=== PATIENT | female | born 1960 | race Caucasian/White ===

== ENCOUNTER 2021-08-24 19:25 | Emergency (ER) | payer MEDICAID ==
[~2021-08-24] VITALS: Ht 152.4 cm; Wt 61.7 kg
[2021-08-24 21:41] VITALS: BP 107/59
[2021-08-24] MEDS ORDERED: NACL 0.9% 1,000 ML IV ONE (23:10)
[2021-08-24 23:28] LABS: BASOPHILS % (AUTO) 0.4 % (0.0-2.0); HEMATOCRIT 32.7 % (36-48); HEMOGLOBIN 11.1 g/dL (12.0-16.0); LYMPHOCYTES % (AUTO) 24.3 % (20.5-51.1); MEAN CORPUSCULAR HEMOGLOBIN 28 pg (27-31); MEAN CORPUSCULAR HGB CONC 34 g/dL (33-37); MEAN CORPUSCULAR VOLUME 82.8 fL (80-94); MONOCYTES # (AUTO) 0.4 K/uL (0.8-1.0); MONOCYTES % (AUTO) 9.5 % (1.7-9.3); NEUTROPHILS # (AUTO) 2.8 K/uL (1.8-7.7); NEUTROPHILS % (AUTO) 65.8 % (42.2-75.2); PLATELET COUNT (AUTO) 219 K/uL (140-450); RED BLOOD CELL COUNT(AUTO) 3.94 MIL/uL (4.20-5.40); RED CELL DISTRIBUTION WIDTH 15.1 % (11.6-13.7); WHITE BLOOD COUNT (AUTO) 4.3 K/uL (4.8-10.8)
[2021-08-24 23:45] LABS: ALBUMIN 3.3 g/dL (3.4-5.0); CARBON DIOXIDE 22.7 mmol/L (21-32); CREATININE 1.2 mg/dL (0.6-1.3); POTASSIUM 3.7 mmol/L (3.5-5.1); TOTAL BILIRUBIN 0.3 mg/dL (0.0-1.0)
--- NOTE | 2021-08-25 01:10 | NUR ---
PT W/C ASSISTED TO CHAIR Delgado
--- NOTE | 2021-08-25 01:10 | NUR ---
SEE COMPLETE ASSESSMENT
--- NOTE | 2021-08-25 01:15 | NUR ---
20G IV STARTED TO LT HAND. NS BOLUS INITIATED.
[2021-08-25 03:40] VITALS: BP 90/56
--- NOTE | 2021-08-25 03:40 | NUR ---
Patient discharged with v/s stable. Written and verbal after care instructions given and explained. Patient verbalized understanding. Ambulatory with steady gait. All questions addressed prior to discharge. Advised to follow up with PMD.
== END 2021-08-25 03:40 | disposition home or self-care (01) ==
LOC: MED 19:25
DX: E86.0 Dehydration (principal); Z20.822 Contact with and (suspected) exposure to COVID-19; R63.0 Anorexia; R53.1 Weakness; Z85.3 Personal history of malignant neoplasm of breast
CPT/HCPCS: 36415; 71045; 80053; 81002; 83605; 84484; 85025; 87040; 93005; 96360; 99283; J7030